=== PATIENT | female | born 1940 | race Caucasian/White ===

== ENCOUNTER 2022-10-29 05:30 | Day surgery (SDC) | payer MEDICARE, OTHER ==
[~2022-10-29 05:30] MED LIST: Sodium Chloride 0.9% 10 ML Syringe FLUSH SCH
[2022-10-29] MEDS ORDERED: fentaNYL 100 MCG/2 ML SDV IV ONE ×4 (05:31→06:39)
[2022-10-29] MEDS ORDERED: Midazolam 1 MG/ML 2 ML SDV IV ONE ×4 (05:31→06:41)
[2022-10-29] MEDS ORDERED: Midazolam 1 MG/ML 2 ML SDV ONE (06:10)
[2022-10-29] MEDS ORDERED: fentaNYL 100 MCG/2 ML SDV ONE (06:10)
[2022-10-29] MEDS ORDERED: Sodium Chloride 0.9% 10 ML Syringe FLUSH PRN (06:30)
[2022-10-29] MEDS ORDERED: Dextrose 5%-0.45% NaCl 1,000 ML IV SCH (06:30)
[2022-10-29 09:20] VITALS: BP 125/45; PULSE 60
== END 2022-10-29 08:56 | disposition home or self-care (01) ==
LOC: DL.ENDO 05:30
PROVIDERS: ATTEND Internal Medicine Gastroenterology
DX: Z12.11 Encounter for screening for malignant neoplasm of colon (principal); E66.09 Other obesity due to excess calories; I10 Essential (primary) hypertension; Z98.890 Other specified postprocedural states; Z79.899 Other long term (current) drug therapy; Z88.6 Allergy status to analgesic agent; Z88.8 Allergy status to other drugs, medicaments and biological substances; Z68.29 Body mass index [BMI] 29.0-29.9, adult
CPT/HCPCS: J2250; J3010; J7042

== ENCOUNTER 2023-03-01 18:37 | Emergency (ER) | payer MEDICARE, OTHER ==
[2023-03-01 19:09] VITALS: BP 142/83; PULSE 69
[2023-03-01 19:16] LABS: BASOPHILS PERCENT AUTO 0.5 % (0.0-1.0); HEMATOCRIT 37.3 % (37.0-47.0); HEMOGLOBIN 12.7 g/dL (12.0-16.0); LYMPHOCYTES PERCENT AUTO 37.5 % (20.5-50.1); MEAN CORPUSCULAR HEMOGLOBIN 30.2 pg (27.0-34.0); MEAN CORPUSCULAR VOLUME 88.6 fL (80-100); MONOCYTES PERCENT AUTO 14.6 % (2-8); NEUTROPHILS PERCENT AUTO 44.4 % (42.2-75.2); PLATELET COUNT,PLT 234 10^3/uL (150-450); RED BLOOD CELL COUNT 4.21 10^6/uL (4.2-5.4)
[2023-03-01 19:35] LABS: ALBUMIN 3.6 g/dL (3.4-5.0); ANION GAP 12.3 mEq/L (7-13); BILIRUBIN TOTAL 0.3 mg/dL (0.2-1.0); BUN/CREATININE RATIO 21.2 (No establ ref range); CALCIUM 8.8 mg/dL (8.5-10.1); CREATININE 0.99 mg/dL (0.55-1.02); EST CRCL DRUG DOSING (CG) 39.42 mL/min; POTASSIUM,K 4.3 mmol/L (3.5-5.1); PROTEIN TOTAL,TP 7.3 g/dL (6.4-8.2)
[2023-03-01 19:48] LABS: APPEARANCE,URINE CLEAR (CLEAR); BILIRUBIN,URINE NEGATIVE (NEGATIVE); COLOR,URINE YELLOW (YELLOW); GLUCOSE,URINE NEGATIVE (NEGATIVE); KETONES,URINE NEGATIVE (NEGATIVE); LEUKOCYTE ESTERASE,URINE MODERATE (NEGATIVE); NITRITE,URINE NEGATIVE (NEGATIVE); OCCULT BLOOD,URINE TRACE-INTACT (NEGATIVE); PROTEIN,URINE TRACE (NEGATIVE); UROBILINOGEN,URINE 0.2 mg/dL (0.2-1.0)
[2023-03-01 19:57] LABS: BACTERIA,URINE FEW /HPF (0-FEW/HPF); EPITHELIAL CELLS,URINE FEW /HPF (NOT SEEN); MUCUS,URINE MODERATE /LPF (NOT SEEN); RBC,URINE 20-30 /HPF (0-5)
[2023-03-01 19:58] LABS: HYALINE CASTS,URINE RARE
== END 2023-03-01 19:57 | disposition home or self-care (01) ==
LOC: DL.ED 18:37
DX: Z77.098 Contact with and (suspected) exposure to other hazardous, chiefly nonmedicinal, chemicals (principal); I10 Essential (primary) hypertension; E03.9 Hypothyroidism, unspecified; E66.9 Obesity, unspecified; Z68.29 Body mass index [BMI] 29.0-29.9, adult; Z88.6 Allergy status to analgesic agent; Z88.8 Allergy status to other drugs, medicaments and biological substances; Z79.899 Other long term (current) drug therapy
CPT/HCPCS: 36415; 80053; 81001; 85025; 87086; 99283

== ENCOUNTER 2025-05-21 15:11 | Inpatient (IN) | payer MEDICARE, OTHER ==
[2025-05-21 15:48] LABS: BASOPHILS PERCENT AUTO 0.2 % (0.0-1.0); EOSINOPHILS PERCENT AUTO 0.8 % (1.0-3.0); LYMPHOCYTES PERCENT AUTO 12.1 % (20.5-50.1); MONOCYTES PERCENT AUTO 12.2 % (2-8); NEUTROPHILS PERCENT AUTO 74.7 % (42.2-75.2); PLATELET COUNT,PLT 528 10^3/uL (150-450); RED BLOOD CELL COUNT 3.36 10^6/uL (4.2-5.4); WHITE BLOOD CELL COUNT,WBC 12.7 10^3/uL (5.0-10.0)
[2025-05-21 16:06] LABS: ALANINE AMINOTRANSFERASE,ALT 59.0 U/L (14-59); ASPARTATE AMNIOTRANSFERASE,AST 67.0 U/L (15-37); BILIRUBIN TOTAL 0.3 mg/dL (0.2-1.0); BLOOD UREA NITROGEN,BUN 29.0 mg/dL (7-18); CARBON DIOXIDE,CO2 27.0 mmol/L (21-32); CREATININE 1.01 mg/dL (0.55-1.02); EST CRCL DRUG DOSING (CG) 37.31 mL/min; GLUCOSE RANDOM 122.0 mg/dL (70-99); PHOSPHORUS 3.7 mg/dL (2.6-4.7); POTASSIUM,K 3.9 mmol/L (3.5-5.1); PROTEIN TOTAL,TP 6.0 g/dL (6.4-8.2)
[2025-05-21 16:10] LABS: A/G RATIO 0.5; CHLORIDE,CL 96.0 mmol/L (98-107); ESTIMATED GFR 55.0 mL/min (>=60); SODIUM,NA 131.0 mmol/L (136-145)
[2025-05-21 16:12] LABS: B-TYPE NATRIURETIC PEPTIDE,BNP 102.0 pg/ml (0-100)
[2025-05-21] MEDS: Magnesium Sulfate 2 GM/50 mL 2 GM in Premix Bag 1 BAG IV ONE (16:28)
[2025-05-21 17:10] LABS: INR 1.0 (0.9-1.2)
[2025-05-21 18:21] LABS: T4 FREE 1.62 ng/dL (0.76-1.46); TSH ULTRASENSITIVE 5.16 uIU/mL (0.36-3.74)
[2025-05-21 19:58] LABS: BODY FLUID TYPE THORACENTESIS FLUID
[2025-05-21] MEDS: Furosemide 40 MG/4 ML VIAL IVPUSH ONE (19:58)
[2025-05-21] MEDS: Albumin Human 25 GM in Premix Bag 1 BAG IV ONE (20:04)
[2025-05-21 20:46] LABS: PROTEIN,BODY FLUID 3.6 mg/dL
[2025-05-21] MEDS: Sodium Chloride 0.9% 10 ML Syringe FLUSH SCH (21:05)
[2025-05-21] MEDS: Heparin Sodium 5,000 Units/ML Vial SUBCUT SCH (21:33)
[2025-05-22 07:06] LABS: BASOPHILS PERCENT AUTO 0.3 % (0.0-1.0); BLOOD UREA NITROGEN,BUN 25.0 mg/dL (7-18); CARBON DIOXIDE,CO2 29.0 mmol/L (21-32); CHLORIDE,CL 97.0 mmol/L (98-107); CREATININE 0.9 mg/dL (0.55-1.02); EOSINOPHILS PERCENT AUTO 1.2 % (1.0-3.0); EST CRCL DRUG DOSING (CG) 41.87 mL/min; GLUCOSE RANDOM 114.0 mg/dL (70-99); LYMPHOCYTES PERCENT AUTO 12.3 % (20.5-50.1); MONOCYTES PERCENT AUTO 14.1 % (2-8); NEUTROPHILS PERCENT AUTO 72.1 % (42.2-75.2); PLATELET COUNT,PLT 410 10^3/uL (150-450); POTASSIUM,K 3.6 mmol/L (3.5-5.1); RED BLOOD CELL COUNT 3.43 10^6/uL (4.2-5.4); WHITE BLOOD CELL COUNT,WBC 9.8 10^3/uL (5.0-10.0)
[2025-05-22 07:11] LABS: SODIUM,NA 132.0 mmol/L (136-145)
[2025-05-22 07:13] LABS: ESTIMATED GFR 63.0 mL/min (>=60)
[2025-05-22] MEDS: Albumin Human 50 GM in Premix Bag 1 BAG IV ONE (14:30)
[2025-05-23] MEDS: Nystatin Topical Powder 60 GM Bottle TOP SCH (04:01)
[2025-05-23] MEDS: Furosemide 40 MG/4 ML VIAL IVPUSH ONE (09:53)
[2025-05-23] MEDS: Magnesium Sulfate 2 GM/50 mL 2 GM in Premix Bag 1 BAG IV ONE (09:54)
[2025-05-24 06:22] LABS: PLATELET COUNT,PLT 471 10^3/uL (150-450); RED BLOOD CELL COUNT 3.48 10^6/uL (4.2-5.4); WHITE BLOOD CELL COUNT,WBC 11.1 10^3/uL (5.0-10.0)
[2025-05-24] MEDS: Metoprolol Tartrate 5 MG/5 ML SDV IVPUSH ONE (06:25)
[2025-05-24 06:37] LABS: BASOPHILS PERCENT AUTO 0.3 % (0.0-1.0); EOSINOPHILS PERCENT AUTO 2.6 % (1.0-3.0); LYMPHOCYTES PERCENT AUTO 17.2 % (20.5-50.1); MONOCYTES PERCENT AUTO 11.4 % (2-8); NEUTROPHILS PERCENT AUTO 68.5 % (42.2-75.2)
[2025-05-24 06:47] LABS: BLOOD UREA NITROGEN,BUN 18.0 mg/dL (7-18); CARBON DIOXIDE,CO2 29.0 mmol/L (21-32); CREATININE 0.79 mg/dL (0.55-1.02); EST CRCL DRUG DOSING (CG) 47.7 mL/min; GLUCOSE RANDOM 112.0 mg/dL (70-99); SODIUM,NA 133.0 mmol/L (136-145); T4 FREE 1.38 ng/dL (0.76-1.46); TSH ULTRASENSITIVE 6.17 uIU/mL (0.36-3.74)
[2025-05-24 06:54] LABS: CHLORIDE,CL 97.0 mmol/L (98-107); POTASSIUM,K 3.8 mmol/L (3.5-5.1)
[2025-05-24 06:55] LABS: ESTIMATED GFR 74.0 mL/min (>=60)
[2025-05-24 07:01] LABS: EOSINOPHILS PERCENT MAN 1 % (1-3); LYMPHOCYTES PERCENT MAN 11 % (20-50); MONOCYTES PERCENT MAN 10 % (2-8); SEG NEUTROPHILS PERCENT MAN 78 % (42-75)
[2025-05-24 12:59] VITALS: BP 141/56; PULSE 99
[2025-05-25 15:47] LABS: BASO'S 0 /cu mm; EO'S 0 /cu mm; LYMPH'S 153 /cu mm; MONO'S 226 /cu mm; OTHER 412 /cu mm; PMN'S 16 /cu mm
== END 2025-05-24 13:02 | DRG 193 ==
LOC: DL.ED 15:11 → DL.MS 16:53
PROVIDERS: ADMIT Internal Medicine; ATTEND Internal Medicine
PROC: 0W9G3ZZ Drainage of Peritoneal Cavity, Percutaneous Approach (ICD-10-PCS; principal; 2025-05-21)
PROC: 0W993ZZ Drainage of Right Pleural Cavity, Percutaneous Approach (ICD-10-PCS; 2025-05-21)
PROC: 30233J1 Transfusion of Nonautologous Serum Albumin into Peripheral Vein, Percutaneous Approach (ICD-10-PCS; 2025-05-21)
PROC: 0W993ZZ Drainage of Right Pleural Cavity, Percutaneous Approach (ICD-10-PCS; 2025-05-22)
DX: J90 Pleural effusion, not elsewhere classified (principal); J18.9 Pneumonia, unspecified organism; J96.01 Acute respiratory failure with hypoxia; C56.9 Malignant neoplasm of unspecified ovary; J91.0 Malignant pleural effusion; E03.9 Hypothyroidism, unspecified; E87.1 Hypo-osmolality and hyponatremia; E46 Unspecified protein-calorie malnutrition; R18.0 Malignant ascites; N39.0 Urinary tract infection, site not specified; Z90.49 Acquired absence of other specified parts of digestive tract; B37.89 Other sites of candidiasis; I10 Essential (primary) hypertension; K21.9 Gastro-esophageal reflux disease without esophagitis; M54.9 Dorsalgia, unspecified; G89.29 Other chronic pain; M19.90 Unspecified osteoarthritis, unspecified site; M81.0 Age-related osteoporosis without current pathological fracture; F41.9 Anxiety disorder, unspecified; F32.A Depression, unspecified; E83.42 Hypomagnesemia; H35.30 Unspecified macular degeneration; K52.9 Noninfective gastroenteritis and colitis, unspecified; E89.0 Postprocedural hypothyroidism; E66.9 Obesity, unspecified; E88.09 Other disorders of plasma-protein metabolism, not elsewhere classified; Z85.41 Personal history of malignant neoplasm of cervix uteri; Z85.3 Personal history of malignant neoplasm of breast; Z98.49 Cataract extraction status, unspecified eye; Z90.89 Acquired absence of other organs; Z90.710 Acquired absence of both cervix and uterus; Z88.6 Allergy status to analgesic agent; Z88.8 Allergy status to other drugs, medicaments and biological substances; Z79.82 Long term (current) use of aspirin; Z79.890 Hormone replacement therapy; Z79.899 Other long term (current) drug therapy; Z68.30 Body mass index [BMI] 30.0-30.9, adult
CPT/HCPCS: 36415; 71045; 80053; 83615 ×2; 83735; 83880; 84100; 84439; 84443; 85025; 85610; 96374; 96375; 99284; 99285; A9270 ×2; J0456; J0696 ×2; J3475; J7050; 80048; 82947; 84157; 87070; 88112; 88305; 89051; J1644; J1938; J3490; P9047

== ENCOUNTER 2025-05-30 11:03 | Inpatient (IN) | payer MEDICARE, OTHER ==
[2025-05-30] MEDS ORDERED: Sodium Chloride 0.9% 10 ML Syringe FLUSH PRN (11:06)
[2025-05-30 11:23] LABS: PLATELET COUNT,PLT 434 10^3/uL (150-450); RED BLOOD CELL COUNT 3.99 10^6/uL (4.2-5.4); WHITE BLOOD CELL COUNT,WBC 13.8 10^3/uL (5.0-10.0)
[2025-05-30 11:36] LABS: BASOPHILS PERCENT AUTO 0.4 % (0.0-1.0); EOSINOPHILS PERCENT AUTO 0.5 % (1.0-3.0); LYMPHOCYTES PERCENT AUTO 10.8 % (20.5-50.1); MONOCYTES PERCENT AUTO 11.0 % (2-8); NEUTROPHILS PERCENT AUTO 77.3 % (42.2-75.2)
[2025-05-30 11:53] LABS: B-TYPE NATRIURETIC PEPTIDE,BNP 96.0 pg/ml (0-100); INR 1.0 (0.9-1.2)
[2025-05-30 11:53] LABS: LYMPHOCYTES PERCENT MAN 12 % (20-50); MONOCYTES PERCENT MAN 10 % (2-8); SEG NEUTROPHILS PERCENT MAN 78 % (42-75)
[2025-05-30 11:56] LABS: A/G RATIO 0.56; ALANINE AMINOTRANSFERASE,ALT 49.0 U/L (14-59); ASPARTATE AMNIOTRANSFERASE,AST 50.0 U/L (15-37); BILIRUBIN TOTAL 0.4 mg/dL (0.2-1.0); BLOOD UREA NITROGEN,BUN 22.0 mg/dL (7-18); CARBON DIOXIDE,CO2 31.0 mmol/L (21-32); CHLORIDE,CL 94.0 mmol/L (98-107); CREATININE 1.0 mg/dL (0.55-1.02); EST CRCL DRUG DOSING (CG) 37.68 mL/min; ESTIMATED GFR 56.0 mL/min (>=60); GLUCOSE RANDOM 132.0 mg/dL (70-99); POTASSIUM,K 4.3 mmol/L (3.5-5.1); PROTEIN TOTAL,TP 6.1 g/dL (6.4-8.2); SODIUM,NA 130.0 mmol/L (136-145)
[2025-05-30] MEDS ORDERED: Metoprolol Tartrate 5 MG/5 ML SDV IVPUSH PRN (13:04)
[2025-05-30] MEDS ORDERED: hydrALAZINE 20 MG/ML SDV IVPUSH PRN (13:04)
[2025-05-30] MEDS ORDERED: Acetaminophen/HYDROcodone 325-5 MG Tab PO PRN (13:07)
[2025-05-30] MEDS ORDERED: Ondansetron 4 MG/2 ML SDV IVPUSH PRN (13:07)
[2025-05-30] MEDS ORDERED: Sennosides/Docusate Sodium 50-8.6 MG Tab PO PRN (13:07)
[2025-05-30] MEDS ORDERED: Magnesium Hydroxide 400 MG/5 ML Susp 30 ML Cup PO PRN (13:07)
[2025-05-30] MEDS ORDERED: guaiFENesin/Dextromethorphan 100-10 MG/5 ML Soln 5 ML Cup PO PRN (13:12)
[2025-05-30] MEDS: Albumin Human 25 GM in Premix Bag 1 BAG IV SCH (16:30)
[2025-05-30] MEDS: Saccharomyces Boulardii (Probiotic) 250 MG Cap PO ONE (16:32)
[2025-05-30] MEDS: Ciprofloxacin in D5W 200 MG in Premix Bag 1 BAG IV ONE (16:46)
[2025-05-30] MEDS: Calcitonin (Salmon) Nasal Spray 3.7 ML Bottle NAS SCH (23:39)
[2025-05-30] MEDS: Nystatin Topical Powder 60 GM Bottle TOP SCH (23:39)
[2025-05-31] MEDS: Ampicillin/Sulbactam Na 1.5 GM in Sodium Chloride 0.9% 100 ML IV SCH (00:07)
[2025-05-31 06:34] LABS: BASOPHILS PERCENT AUTO 0.3 % (0.0-1.0); EOSINOPHILS PERCENT AUTO 1.3 % (1.0-3.0); LYMPHOCYTES PERCENT AUTO 11.9 % (20.5-50.1); MONOCYTES PERCENT AUTO 10.9 % (2-8); NEUTROPHILS PERCENT AUTO 75.6 % (42.2-75.2); PLATELET COUNT,PLT 384 10^3/uL (150-450); RED BLOOD CELL COUNT 3.09 10^6/uL (4.2-5.4); WHITE BLOOD CELL COUNT,WBC 11.4 10^3/uL (5.0-10.0)
[2025-05-31 07:08] LABS: ALANINE AMINOTRANSFERASE,ALT 34.0 U/L (14-59); ASPARTATE AMNIOTRANSFERASE,AST 34.0 U/L (15-37); BILIRUBIN TOTAL 0.4 mg/dL (0.2-1.0); BLOOD UREA NITROGEN,BUN 18.0 mg/dL (7-18); CARBON DIOXIDE,CO2 31.0 mmol/L (21-32); CHLORIDE,CL 96.0 mmol/L (98-107); CREATININE 0.84 mg/dL (0.55-1.02); EST CRCL DRUG DOSING (CG) 44.86 mL/min; GLUCOSE RANDOM 101.0 mg/dL (70-99); POTASSIUM,K 3.6 mmol/L (3.5-5.1); PROTEIN TOTAL,TP 5.6 g/dL (6.4-8.2); SODIUM,NA 134.0 mmol/L (136-145)
[2025-05-31 07:09] LABS: A/G RATIO 1.15; ESTIMATED GFR 68.0 mL/min (>=60)
[2025-05-31] MEDS: Saccharomyces Boulardii (Probiotic) 250 MG Cap PO SCH ×2 (08:58→20:04)
[2025-05-31] MEDS: Calcium Carbonate/Vitamin D3 1250 MG-5 MCG Tab PO SCH (08:59)
[2025-05-31] MEDS ORDERED: Ciprofloxacin in D5W 200 MG in Premix Bag 1 BAG IV SCH (09:00)
[2025-06-01 06:36] LABS: PLATELET COUNT,PLT 349 10^3/uL (150-450); RED BLOOD CELL COUNT 3.26 10^6/uL (4.2-5.4); WHITE BLOOD CELL COUNT,WBC 12.0 10^3/uL (5.0-10.0)
[2025-06-01 06:43] LABS: BASOPHILS PERCENT AUTO 0.3 % (0.0-1.0); EOSINOPHILS PERCENT AUTO 1.4 % (1.0-3.0); LYMPHOCYTES PERCENT AUTO 14.0 % (20.5-50.1); MONOCYTES PERCENT AUTO 11.5 % (2-8); NEUTROPHILS PERCENT AUTO 72.8 % (42.2-75.2)
[2025-06-01 06:57] LABS: ALANINE AMINOTRANSFERASE,ALT 29.0 U/L (14-59); ASPARTATE AMNIOTRANSFERASE,AST 30.0 U/L (15-37); BILIRUBIN TOTAL 0.3 mg/dL (0.2-1.0); BLOOD UREA NITROGEN,BUN 17.0 mg/dL (7-18); CARBON DIOXIDE,CO2 33.0 mmol/L (21-32); CHLORIDE,CL 96.0 mmol/L (98-107); CREATININE 0.81 mg/dL (0.55-1.02); EST CRCL DRUG DOSING (CG) 46.52 mL/min; GLUCOSE RANDOM 98.0 mg/dL (70-99); POTASSIUM,K 3.4 mmol/L (3.5-5.1); PROTEIN TOTAL,TP 5.4 g/dL (6.4-8.2); SODIUM,NA 134.0 mmol/L (136-145)
[2025-06-01 07:05] LABS: A/G RATIO 0.86; ESTIMATED GFR 72.0 mL/min (>=60)
[2025-06-01 07:13] LABS: EOSINOPHILS PERCENT MAN 1 % (1-3); LYMPHOCYTES PERCENT MAN 13 % (20-50); MONOCYTES PERCENT MAN 9 % (2-8); SEG NEUTROPHILS PERCENT MAN 77 % (42-75)
[2025-06-01] MEDS: Potassium Chloride 10 MEQ Tab.ER PO ONE (09:19)
[2025-06-01] MEDS: Atropine 0.1 MG/ML 10 ML Syringe IVPUSH ONE (10:32)
[2025-06-01] MEDS: Magnesium Sulfate 2 GM/50 mL 2 GM in Premix Bag 1 BAG IV ONE (10:51)
[2025-06-02] MEDS: Albumin Human 25 GM in Premix Bag 1 BAG IV SCH (01:12)
[2025-06-02 06:32] LABS: BASOPHILS PERCENT AUTO 0.4 % (0.0-1.0); EOSINOPHILS PERCENT AUTO 1.5 % (1.0-3.0); LYMPHOCYTES PERCENT AUTO 13.9 % (20.5-50.1); MONOCYTES PERCENT AUTO 10.7 % (2-8); NEUTROPHILS PERCENT AUTO 73.5 % (42.2-75.2); PLATELET COUNT,PLT 368 10^3/uL (150-450); RED BLOOD CELL COUNT 3.38 10^6/uL (4.2-5.4); WHITE BLOOD CELL COUNT,WBC 13.1 10^3/uL (5.0-10.0)
[2025-06-02 07:13] LABS: ALANINE AMINOTRANSFERASE,ALT 36.0 U/L (14-59); ASPARTATE AMNIOTRANSFERASE,AST 39.0 U/L (15-37); BILIRUBIN TOTAL 0.4 mg/dL (0.2-1.0); BLOOD UREA NITROGEN,BUN 17.0 mg/dL (7-18); CARBON DIOXIDE,CO2 33.0 mmol/L (21-32); CHLORIDE,CL 98.0 mmol/L (98-107); CREATININE 0.74 mg/dL (0.55-1.02); EST CRCL DRUG DOSING (CG) 50.92 mL/min; GLUCOSE RANDOM 102.0 mg/dL (70-99); POTASSIUM,K 4.3 mmol/L (3.5-5.1); PROTEIN TOTAL,TP 5.7 g/dL (6.4-8.2); SODIUM,NA 136.0 mmol/L (136-145)
[2025-06-02 07:17] LABS: A/G RATIO 0.9; ESTIMATED GFR 80.0 mL/min (>=60)
[2025-06-02 07:44] VITALS: BP 149/58
[2025-06-02 12:02] VITALS: PULSE 86
== END 2025-06-02 11:40 | disposition other institution (70) | DRG 186 ==
LOC: DL.ED 11:03 → DL.MS 12:21 → DL.ED 12:34
PROVIDERS: ADMIT Internal Medicine; ATTEND Internal Medicine
PROC: B543ZZA Ultrasonography of Right Jugular Veins, Guidance (ICD-10-PCS; principal; 2025-05-30)
PROC: 05HM33Z Insertion of Infusion Device into Right Internal Jugular Vein, Percutaneous Approach (ICD-10-PCS; principal; 2025-05-30)
PROC: 0W993ZZ Drainage of Right Pleural Cavity, Percutaneous Approach (ICD-10-PCS; principal; 2025-05-30)
PROC: 0W9G3ZZ Drainage of Peritoneal Cavity, Percutaneous Approach (ICD-10-PCS; principal; 2025-05-30)
DX: J18.9 Pneumonia, unspecified organism (principal); R18.0 Malignant ascites; J90 Pleural effusion, not elsewhere classified; J96.01 Acute respiratory failure with hypoxia; R18.8 Other ascites; E87.1 Hypo-osmolality and hyponatremia; E46 Unspecified protein-calorie malnutrition; D72.829 Elevated white blood cell count, unspecified; D63.8 Anemia in other chronic diseases classified elsewhere; Z88.6 Allergy status to analgesic agent; E88.09 Other disorders of plasma-protein metabolism, not elsewhere classified; Z68.29 Body mass index [BMI] 29.0-29.9, adult; E83.52 Hypercalcemia; E87.8 Other disorders of electrolyte and fluid balance, not elsewhere classified; I10 Essential (primary) hypertension; E03.9 Hypothyroidism, unspecified; K21.9 Gastro-esophageal reflux disease without esophagitis; M81.0 Age-related osteoporosis without current pathological fracture; G62.9 Polyneuropathy, unspecified; M54.9 Dorsalgia, unspecified; G89.29 Other chronic pain; M19.90 Unspecified osteoarthritis, unspecified site; F41.9 Anxiety disorder, unspecified; F32.A Depression, unspecified; E66.9 Obesity, unspecified; Z68.28 Body mass index [BMI] 28.0-28.9, adult; Z98.49 Cataract extraction status, unspecified eye; Z98.890 Other specified postprocedural states; Z88.8 Allergy status to other drugs, medicaments and biological substances; Z79.82 Long term (current) use of aspirin; Z79.899 Other long term (current) drug therapy; Z90.49 Acquired absence of other specified parts of digestive tract; Z85.3 Personal history of malignant neoplasm of breast; Z90.710 Acquired absence of both cervix and uterus
CPT/HCPCS: 36415; 71045; 80053; 83735; 83880; 84484; 85025; 85610; 86140; 87040; 93005; 94762; 96374; 99285; J0456; J0696; J7050; 51702; 93010; 96375; A9270-GY; C1751; J0295; J1171; J1938; J2003; J3475; J3486; J3490; P9047